=== PATIENT | female | born 1950 | race Caucasian/White ===

== ENCOUNTER 2024-03-16 09:27 | Outpatient (CLI) | payer MEDICARE | END 2024-03-16 23:59 | disposition home or self-care (01) | LOC: MRI 09:27 | PROVIDERS: ATTEND Pediatrics Sports Medicine | DX: M51.27 Other intervertebral disc displacement, lumbosacral region (principal); M51.37 Other intervertebral disc degeneration, lumbosacral region; M47.816 Spondylosis without myelopathy or radiculopathy, lumbar region; M48.07 Spinal stenosis, lumbosacral region | CPT/HCPCS: 72148 ==